=== PATIENT | female | born 1995 | race African-American/Black ===

== ENCOUNTER 2019-04-30 13:22 | Emergency (ER) | payer OTHER ==
[2019-04-30 13:34] VITALS: BP 120/79; PULSE 91; TEMP 98.6; BMI 33.5
--- NOTE | 2019-04-30 14:17 | PDOC ---
History of Present Illness - General Chief Complaint: Revisit, Lab Variance Stated Complaint: SENT BY PCP Time Seen by Provider: 04/30/19 14:16 Past History - Past Medical History Allergies/Adverse Reactions: Allergies Allergy/AdvReac Type Severity Reaction Status Date / Time No Known Allergies Allergy Unverified 04/30/19 13:34 Home Medications: Ambulatory Orders NK [No Known Home Medication] 10/06/13 COPD: No - Reproductive History (#): 5 Para: 0 Therapeutic (s) & number: Yes (4) Spontaneous : 0 - Suicide/Smoking/Psychosocial Hx Smoking History: Current every day smoker Number of Cigarettes Smoked Daily: 3 Information on smoking cessation initiated: No Hx Alcohol Use: No Substance Use Type: None *Physical Exam - Vital Signs Last Vital Signs Temp Pulse Resp BP Pulse Ox 98.6 F 91 H 18 120/79 99 04/30/19 13:31 04/30/19 13:31 04/30/19 13:31 04/30/19 13:31 04/30/19 13:31 *DC/Admit/Observation/Transfer - Referrals Referrals: Alise Mccabe DO [Primary Care Provider] - - Patient Instructions - Post Discharge Activity
--- NOTE | 2019-04-30 15:07 | PDOC ---
Documentation entered by Florence Madrid SCRIBE, acting as scribe for Lissette Souza DO. Lissette Souza DO: This documentation has been prepared by the Julius chandler Adrianna, SCRIBE, under my direction and personally reviewed by me in its entirety. I confirm that the documentation accurately reflects all work, treatment, procedures, and medical decision making performed by me. Attending Attestation - Resident Resident Name: Elo Gamble - ED Attending Attestation I have performed the following: I have examined & evaluated the patient, The case was reviewed & discussed with the resident, I agree w/resident's findings & plan, Exceptions are as noted - HPI HPI: The patient is a 23 year old female (A4), with no significant PMH, who presents to the ED for evaluation of vaginal bleeding for 2 weeks. Patient notes her LMP was over a month ago, but she continued to bleed following the completion of her period (typically last for 5 days every month). Patient notes scant blood only when wiping. [facility] issue, and was told she was . Patient has a transvaginal US today, and was told the could not be visualized. She was advised to come to the ED for further evaluation. Denies passing clots. Allergies: NKA, NKDA Surgical History: None reported Social History: Daily marijuana use. Current everyday smoker (3 cigarettes per day). Denies EtOH or illicit drug use. PCP: Dr. Mccabe - Physicial Exam PE: Constitutional: Awake, alert, oriented. No acute distress. Cardiovascular: Regular rate. Regular rhythm. S1, S2 regular. Distal pulses are 2+ and symmetric. Pulmonary/Chest: No evidence of respiratory distress. Clear to auscultation bilaterally No wheezing, rales or rhonchi. Abdominal: Soft and nondistended. There is no tenderness. No rebound, guarding or rigidity. No organomegaly. No palpable masses. Good bowel sounds. Musculoskeletal: No edema. No cyanosis. No clubbing. Full range of motion in all extremities. Nocalf tenderness. Radial/pedal pulses are intact and 2+ bilaterally Neurological: Cranial nerves II-XII are grossly intact. No focal deficits. Psychiatric: Good eye contact. Normal interaction, affect and behavior. - Medical Decision Making 04/30/19 15:05 I, Dr. Lissette Souza, DO, attest that this document has been prepared under my direction and personally reviewed by me in its entirety. I further attest, that it accurately reflects all work, treatment, procedures and medical decision -making performed by me. a/p: 23yo female with vaginal spotting since 04/15/19, fdlmp was 03/15 -[facility] 3900 on thursday -still with spotting and slight cramping -per pt, [facility] and [facility] tvus (per patient unable to visualize fetus) sent to the ED for further eval -denies passing clots -denies wearing a pad -pt with 4 d&c in the past -will send labs, beta hcg, type and screen, tvus 04/30/19 17:04 pt is O+ blood type beta 6000 04/30/19 17:04 pt to ultrasound
[2019-04-30 15:33] LABS: BASO % 0.5 % (0-2.0); EOS % 0.2 % (0-4.5); HEMATOCRIT 38.8 % (32.4-45.2); HEMOGLOBIN 13.1 GM/dL (10.7-15.3); LYMPH % 33.8 % (8-40); MCHC 33.7 g/dl (32.0-36.0); MEAN CELL VOLUME 88.9 fl (80-96); MEAN PLT VOLUME 10.2 fl (7.5-11.1); MONO % 4.3 % (3.8-10.2); NEUT % 61.2 % (42.8-82.8); PLATELET COUNT 176 K/MM3 (134-434); RBC 4.37 M/mm3 (3.60-5.2); RDW 15.1 % (11.6-15.6); WHITE BLOOD COUNT 5.6 K/mm3 (4.0-10.0)
--- NOTE | 2019-04-30 15:55 | PDOC ---
History of Present Illness - General Chief Complaint: Revisit, Lab Variance Stated Complaint: SENT BY PCP Time Seen by Provider: 04/30/19 14:16 - History of Present Illness Initial Comments: 04/30/19 15:33 HPI: 23 y/o F with hx of 4 elective abortions via D&Cs presenting from [facility] after elevated bHCG and negative IUP on US. Patient states that she has had vaginal bleeding for the past 10days after her period. LMP was 04/15/19. Her period is usually normal and regular with 5 days of flow, however, this time she has continued spotting when wiping after using the bathroom, which is abnormal for her. She denies any clots. She also reports intermittent lower abdominal cramping, but denies severe pain. She also reports NBNB emesis over the past 2 days; currently without nausea. Denies vaginal discharge. Denies fever, chills, chest pain, SOB, syncope, dysuria. PMHx: as noted above ROS: as noted SHx: Smokes 3 cigs/day; denies alcohol; smokes MJ daily; currently sexually active with 1 male partner and does not use any contraception Allergies: NKDA 04/30/19 16:07 Past History - Past Medical History Allergies/Adverse Reactions: Allergies Allergy/AdvReac Type Severity Reaction Status Date / Time No Known Allergies Allergy Unverified 04/30/19 13:34 Home Medications: Ambulatory Orders NK [No Known Home Medication] 10/06/13 COPD: No - Reproductive History (#): 5 Para: 0 Therapeutic (s) & number: Yes (4) Spontaneous : 0 - Suicide/Smoking/Psychosocial Hx Smoking History: Current every day smoker Number of Cigarettes Smoked Daily: 3 Information on smoking cessation initiated: No Hx Alcohol Use: No Substance Use Type: None Review of Systems - Review of Systems Comments:: 04/30/19 16:07 GENERAL/CONSTITUTIONAL: No fever or chills. No weakness. HEAD, EYES, EARS, NOSE AND THROAT: No change in vision. No ear pain or discharge. No sore throat. CARDIOVASCULAR: No chest pain or shortness of breath RESPIRATORY: No cough, wheezing, or hemoptysis. GASTROINTESTINAL: +nausea, vomiting; no diarrhea or constipation. GENITOURINARY: No dysuria, frequency, or change in urination. MUSCULOSKELETAL: No joint or muscle swelling or pain. No neck or back pain. SKIN: No rash NEUROLOGIC: No headache, vertigo, loss of consciousness, or change in strength/ sensation. ENDOCRINE: No increased thirst. No abnormal weight change HEMATOLOGIC/LYMPHATIC: No anemia, easy bleeding, or history of blood clots. ALLERGIC/IMMUNOLOGIC: No hives or skin allergy. *Physical Exam - Vital Signs Last Vital Signs Temp Pulse Resp BP Pulse Ox 98.6 F 91 H 18 120/79 99 04/30/19 13:31 04/30/19 13:31 04/30/19 13:31 04/30/19 13:31 04/30/19 13:31 - Physical Exam Comments: 04/30/19 16:09 GENERAL: Awake, alert, and fully oriented, no acute distress HEAD: No signs of trauma, normocephalic, atraumatic EYES: EOMI, sclera anicteric, conjunctiva clear ENT: Auricles normal inspection, hearing grossly normal, nares patent, oropharynx clear without exudates. Moist mucosa NECK: Normal ROM, no lymphadenopathy LUNGS: No increased work of breathing, symmetrical chest rise, clear to auscultation bilaterally, no wheezes, crackles or rhonchi HEART: Regular rate and rhythm, normal S1 and S2, no murmurs, peripheral pulses 2+ and equal bilaterally. ABDOMEN: Soft, nontender, nondistended, normoactive bowel sounds. No guarding, no rebound. No masses GENITOURINARY: Nml appearing external genitalia, with absent lesions. Vaginal vault without blood, or discharge. Cervical os closed. Neg CMT on BM. Neg adenexal ttp, or mass palpated. EXTREMITIES: Normal inspection, Normal range of motion, no edema. No clubbing or cyanosis. NEUROLOGICAL: Cranial nerves II through XII grossly intact. Normal speech, normal gait, no focal sensorimotor deficits SKIN: Warm, Dry, normal turgor, no rashes or lesions noted ED Treatment Course - LABORATORY CBC & Chemistry Diagram: 04/30/19 15:15 04/30/19 15:15 Medical Decision Making - Medical Decision Making 04/30/19 16:10 23 y/o F with hx of 4 elective abortions via D&Cs [facility] after elevated bHCG and negative IUP on US, notes 10 days of vaginal bleeding/spotting after period. Vitals wnl. PE unremarkable with closed os, no vaginal discharge, no CMT. Will assess for etopic vs molar vs PID vs normal -quantitative hcg, cbc, cmp, t&s, ua, ucx -transvaginal US 04/30/19 19:15 pending transvaginal US; Dr Renee will continue to follow patient *DC/Admit/Observation/Transfer Diagnosis at time of Disposition: Vaginal bleeding - Referrals Referrals: Alise Mccabe DO [Primary Care Provider] - - Patient Instructions - Post Discharge Activity
[2019-04-30 16:03] LABS: ALBUMIN 3.6 g/dl (3.4-5.0); BILIRUBIN,TOTAL 0.2 mg/dL (0.2-1); BLOOD UREA NITROGEN 8.9 mg/dL (7-18); CALCIUM 8.6 mg/dL (8.5-10.1); CREATININE 0.7 mg/dL (0.55-1.3); POTASSIUM 4.1 mmol/L (3.5-5.1); TOT PROT 6.9 g/dl (6.4-8.2)
[2019-04-30 16:51] LABS: EPI CELLS 10.2 /HPF (0-5/HPF); HYALINE CASTS 39 /lpf (0-8); URINE APPEARANCE CLOUDY; URINE BILIRUBIN NEGATIVE (NEGATIVE); URINE COLOR YELLOW; URINE GLUCOSE (UA) NEGATIVE (NEGATIVE); URINE KETONE TRACE (NEGATIVE); URINE LEUK ESTERASE NEGATIVE (NEGATIVE); URINE NITRITE NEGATIVE (NEGATIVE); URINE PROTEIN TRACE (NEGATIVE); URINE RBC 2 /hpf (0-4); URINE WBC 2 /hpf (0-5)
[2019-04-30 16:58] LABS: URINE BACTERIA 16.1 /hpf (NEGATIVE)
--- NOTE | 2019-04-30 19:31 | PDOC ---
*Physical Exam - Vital Signs Last Vital Signs Temp Pulse Resp BP Pulse Ox 98.6 F 91 H 18 120/79 99 04/30/19 13:31 04/30/19 13:31 04/30/19 13:31 04/30/19 13:31 04/30/19 13:31 <Irma Renee - Last Filed: 04/30/19 20:03> - Vital Signs Last Vital Signs Temp Pulse Resp BP Pulse Ox 98.6 F 91 H 18 120/79 99 04/30/19 13:31 04/30/19 13:31 04/30/19 13:31 04/30/19 13:31 04/30/19 13:31 <Long Duran - Last Filed: 04/30/19 21:01> ED Treatment Course - LABORATORY CBC & Chemistry Diagram: 04/30/19 15:15 04/30/19 15:15 - ADDITIONAL ORDERS Additional order review: Laboratory Results 04/30/19 04/30/19 04/30/19 16:17 15:15 15:15 Sodium Potassium Chloride Carbon Dioxide Anion Gap BUN Creatinine Est GFR (CKD-EPI)AfAm Est GFR (CKD-EPI)NonAf Random Glucose Calcium Total Bilirubin AST ALT Alkaline Phosphatase Total Protein Albumin Beta HCG, Quant 6712.2 Urine Color Yellow Urine Appearance Cloudy Urine pH 8.0 Ur Specific Calvert 1.029 Urine Protein Trace Urine Glucose (UA) Negative Urine Ketones Trace H Urine Blood 1+ H Urine Nitrite Negative Urine Bilirubin Negative Urine Urobilinogen 1.0 Ur Leukocyte Esterase Negative Urine WBC (Auto) 2 Urine RBC (Auto) 2 Urine Casts (Auto) 39 U Epithel Cells (Auto) 10.2 Urine Bacteria (Auto) 16.1 Blood Type O POSITIVE Antibody Screen Negative 04/30/19 15:15 Sodium 137 Potassium 4.1 Chloride 105 Carbon Dioxide 25 Anion Gap 7 L BUN 8.9 Creatinine 0.7 Est GFR (CKD-EPI)AfAm 139.57 Est GFR (CKD-EPI)NonAf 120.42 Random Glucose 88 Calcium 8.6 Total Bilirubin 0.2 AST 17 ALT 15 Alkaline Phosphatase 71 Total Protein 6.9 Albumin 3.6 Beta HCG, Quant Urine Color Urine Appearance Urine pH Ur Specific Calvert Urine Protein Urine Glucose (UA) Urine Ketones Urine Blood Urine Nitrite Urine Bilirubin Urine Urobilinogen Ur Leukocyte Esterase Urine WBC (Auto) Urine RBC (Auto) Urine Casts (Auto) U Epithel Cells (Auto) Urine Bacteria (Auto) Blood Type Antibody Screen 04/30/19 15:15 RBC 4.37 MCV 88.9 MCHC 33.7 RDW 15.1 MPV 10.2 Neutrophils % 61.2 Lymphocytes % 33.8 Monocytes % 4.3 Eosinophils % 0.2 Basophils % 0.5 <Irma Renee - Last Filed: 04/30/19 20:03> - LABORATORY CBC & Chemistry Diagram: 04/30/19 15:15 04/30/19 15:15 - ADDITIONAL ORDERS Additional order review: Laboratory Results 04/30/19 04/30/19 04/30/19 16:17 15:15 15:15 Sodium Potassium Chloride Carbon Dioxide Anion Gap BUN Creatinine Est GFR (CKD-EPI)AfAm Est GFR (CKD-EPI)NonAf Random Glucose Calcium Total Bilirubin AST ALT Alkaline Phosphatase Total Protein Albumin Beta HCG, Quant 6712.2 Urine Color Yellow Urine Appearance Cloudy Urine pH 8.0 Ur Specific Calvert 1.029 Urine Protein Trace Urine Glucose (UA) Negative Urine Ketones Trace H Urine Blood 1+ H Urine Nitrite Negative Urine Bilirubin Negative Urine Urobilinogen 1.0 Ur Leukocyte Esterase Negative Urine WBC (Auto) 2 Urine RBC (Auto) 2 Urine Casts (Auto) 39 U Epithel Cells (Auto) 10.2 Urine Bacteria (Auto) 16.1 Blood Type O POSITIVE Antibody Screen Negative 04/30/19 15:15 Sodium 137 Potassium 4.1 Chloride 105 Carbon Dioxide 25 Anion Gap 7 L BUN 8.9 Creatinine 0.7 Est GFR (CKD-EPI)AfAm 139.57 Est GFR (CKD-EPI)NonAf 120.42 Random Glucose 88 Calcium 8.6 Total Bilirubin 0.2 AST 17 ALT 15 Alkaline Phosphatase 71 Total Protein 6.9 Albumin 3.6 Beta HCG, Quant Urine Color Urine Appearance Urine pH Ur Specific Calvert Urine Protein Urine Glucose (UA) Urine Ketones Urine Blood Urine Nitrite Urine Bilirubin Urine Urobilinogen Ur Leukocyte Esterase Urine WBC (Auto) Urine RBC (Auto) Urine Casts (Auto) U Epithel Cells (Auto) Urine Bacteria (Auto) Blood Type Antibody Screen 04/30/19 15:15 RBC 4.37 MCV 88.9 MCHC 33.7 RDW 15.1 MPV 10.2 Neutrophils % 61.2 Lymphocytes % 33.8 Monocytes % 4.3 Eosinophils % 0.2 Basophils % 0.5 <Long Duran - Last Filed: 04/30/19 21:01> Medical Decision Making - Medical Decision Making pt signed out pending repeat sono and betahcg with beta 6700, TVUS with no IUP seen. PUL vs ectopic. pt however is eager to leave and unwilling to stay to discuss results and discuss with internal sales wedding consultant and personal one. told to f/u in 2 days for repeat beta hcg/imaging, as there is concern for ectopic . no pain currently, VS normotensive and unremarkable. Discussion at the bedside with patient and family. Pt has capacity to make medical decisions. Discussed indications for treatment and admission, management plan, risks and benefits. There is no evidence of psychosis, altered mental status or intoxication. Pt understands the nature of condition and treatment plan, including potential risks but not limited to: cardiac arrest, severe infection, ectopic , rupture, peritonitis, perforation, dehydration, bleeding, respiratory failure, delay in diagnosis and management, loss of current lifestyle, loss of functional status, multiorgan failure, coma, severe disability and . Pt will be treated with tylenol PRN pain control close follow up with primary care doctor with reevaluation. Return precautions advised, call 911 immediately if severe life threatening symptoms or concerns.. Pt has verbalized understanding of information provided, questions answered. 04/30/19 20:03 <Irma Renee - Last Filed: 04/30/19 20:03> - Medical Decision Making 04/30/19 19:27 23 y/o hemodynamically stable F with hx 4x D&C p/w 10 days of vaginal bleeding after LMP on 04/15/19 - [facility] after hcg nearly doubled from 3500 2 days ago to 6700 today. Concern for possible ectopic given mild lower abdominal cramping. Plan: Result from TVUS If intrauterine visualized, discharge home. If ectopic noted, discuss with drupal programmer. Dispo: Pending TVUS read --- TVUS - no intrauterine noted. No ectopic noted. As is of unknown anatomic location, plan for drupal programmer consult. --- Results discussed with Ms. Moss. Patient reports that she would like to leave before the drupal programmer consult. Discussed risks of leaving before full workup, she is of sound mind, fully alert and oriented, and not intoxicated. Plan for AMA. Discussed careful return precautions as noted above and in AMA instructions,, including returning with any signs of peritonitis, worsening pain , fevers, chills, confusion, as well as importance for return in 2 days to re- assess hcg. <Long Duran - Last Filed: 04/30/19 21:01> *DC/Admit/Observation/Transfer <Irma Renee - Last Filed: 04/30/19 20:03> - Discharge Dispostion Decision to Admit order: No <Long Duran - Last Filed: 04/30/19 21:01> Diagnosis at time of Disposition: Vaginal bleeding, of unknown anatomic location - Discharge Dispostion Disposition: AGAINST MEDICAL ADVICE Condition at time of disposition: Guarded - Referrals Referrals: Alise Mccabe DO [Primary Care Provider] - - Patient Instructions Printed Discharge Instructions: DI for Ectopic , DI for Vaginal Bleeding During Additional Instructions: Discussion at the bedside with patient, you have capacity to make medical decisions. Discussed indications for treatment and admission, management plan, risks and benefits. There is no evidence of psychosis, altered mental status or intoxication. Pt understands the nature of condition and treatment plan, including potential risks but not limited to: severe infection, ectopic , rupture, peritonitis, perforation, dehydration, bleeding, respiratory failure, delay in diagnosis and management, loss of current lifestyle, loss of functional status, multiorgan failure, coma, severe disability and . Pt will be treated with tylenol PRN pain control close follow up with primary care doctor and SUPPLIER QUALITY SPECIALIST with reevaluation, you should get repeat beta hcg in 48 hours to check and trend with imaging as necessary as we were unable to see a currently with appropriate levels and concern for ectopic . Return precautions advised, call 911 immediately if severe life threatening symptoms or concerns.. - Post Discharge Activity
--- NOTE | 2019-05-04 16:11 | CONSULT ---
Consult Consult Specialty:: SPACE [employer]UD[employer]ACULT[employer] MEMBER Reason for Consultation:: Suspected ectopic - History of Present Illness Chief Complaint: RLQ pain History of Present Illness: Patient reports following at [facility] for . She was evaluated and SJ on and today for pain and vaginal bleeding. Documentation reviewed. SHe reports mild VB and 5/10 pain. 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: No: Alzheimer's, CVA, Dementia, Migraine, Multiple Sclerosis, Peripheral Neuropathy, Parkinson's, Seizure, Syncope, TIA, Vertigo, Other Cardio/Vascular: No: AFIB, Aneurysm, Aortic Insufficiency, Aortic Stenosis, CAD , CHF, Deep Vein Thrombosis, HTN, Hyperlipdemia, RI, Mitral Insufficiency, Mitral Stenosis, Murmur, Pulmonary Hypertension, Other Pulmonary: No: Asthma, Bronchitis, Cancer, COPD, O2 Dependent, Pneumonia, Previously Intubated, Pulmonary Embolus, Pulmonary Fibrosis, Sleep Apnea, Other Gastrointestinal: No: Ascites, Cancer, Constipation, Crohn's Disease, Diverticulitis, Diverticulosis, Esophageal Varices, Gastritis, GERD, GI Bleed, Hemorrhoids, Hiatal Hernia, Inflamatory Bowel Disease, Irritable Bowel Disease, Pancreatitis, Peptic Ulcer Disease, Ulcerative Colitis, Other Hepatobiliary: No: Cirrhosis, Cholelithiasis, Cholecystitis, Choledocholithiasis , Hepatitis A, Hepatitis B, Hepatitis C, Other Renal/: No: Renal Failure, Renal Inusuff, BPH, Cancer, Hematuria, Hemodialysis , Neurogenic Bladder, Renal Calculi, UTI, Other Reproductive: No: Ectopic , Endometriosis, Fibroids, PID, Polycystic Ovary Syndrome, Postmenopausal, Other ...LMP: 04/15/19 ...: Yes Heme/Onc: No: Anemia, B12 Deficiency, Bleeding Disorder, Cancer, Current Chemotherapy, Current Radiation Therapy, Hemochromatosis, Hypercoaguable State, Myeloproliferative Synd, Sickle Cell Disease, Sickle Cell Trait, Thrombocytopenia, Other Infectious Disease: No: AIDS, C-Diff, Herpes Zoster, HIV, MRSA, STD's, Tuberculosis, VREF, Other Psych: No: Addictions, Anxiety, Bipolar, Depression, Panic, Psychosis, Schizophrenia, Other Musculoskeletal: No: Bursitis, Chronic low back pain, Hemiparesis, Hemiplegia, Osteoarthritis, Paraplegia, Other Rheumatology: No: Fibromyalgia, Gout, Lupus, Rheumatoid Arthritis, Sarcoidosis, Vasculitis, Other ENT: No: Allergic Rhinitis, Sinusitis, Other Endocrine: No: Eddy's Disease, [place]'s Disease, Diabetes Insipidus, Diabetes Mellitus, Hyperparathyroidism, Hyperthyroidism, Hypothyroidism, Osteopenia, SIADH, Other Dermatology: No: Basal Cell, Cellulitis, Eczema, Melanoma, Psoriasis, Squamous Cell, Other - Past Surgical History Additional Surgical History: D&C x 4 - Alcohol/Substance Use Hx Alcohol Use: No History of Substance Use: reports: Marijuana - Smoking History Smoking history: Current every day smoker Have you smoked in the past 12 months: Yes Aproximately how many cigarettes per day: 3 Home Medications - Allergies Allergies/Adverse Reactions: Allergies Allergy/AdvReac Type Severity Reaction Status Date / Time No Known Allergies Allergy Verified 05/04/19 12:04 - Home Medications Home Medications: Ambulatory Orders NK [No Known Home Medication] 10/06/13 Family Disease History - Family Disease History Family History: Unremarkable Review of Systems - Review of Systems Constitutional: reports: No Symptoms HENT: reports: No Symptoms Neck: reports: No Symptoms Cardiovascular: reports: No Symptoms Respiratory: reports: No Symptoms Gastrointestinal: reports: No Symptoms, Abdominal Pain (RLQ) Genitourinary: reports: No Symptoms, Vaginal Bleeding Breasts: reports: Other Musculoskeletal: reports: No Symptoms Integumentary: reports: No Symptoms Neurological: reports: No Symptoms Endocrine: reports: No Symptoms Hematology/Lymphatic: reports: No Symptoms Psychiatric: reports: No Symptoms Physical Exam Vital Signs: Vital Signs Temperature 98.6 F 04/30/19 13:31 Pulse Rate 91 H 04/30/19 13:31 Respiratory Rate 18 04/30/19 13:31 Blood Pressure 120/79 04/30/19 13:31 O2 Sat by Pulse Oximetry (%) 99 04/30/19 13:31 Constitutional: Yes: Calm HENT: Yes: Atraumatic Neck: Yes: Supple Cardiovascular: Yes: Regular Rate and Rhythm Respiratory: Yes: Regular Gastrointestinal: Yes: Soft, Other (mild RLQ tenderness on palpation, no guarding, no rebound) ...Rectal Exam: Yes: Deferred Extremities: Yes: WNL Edema: No Integumentary: Yes: WNL Neurological: Yes: Alert, Oriented Psychiatric: Yes: Alert, Oriented Labs: CBC, BMP 04/30/19 15:15 08/31/19 15:15 Imaging - Results Ultrasound: Report Reviewed (x 2) Assessment/Plan 23 y/o presenting for suspicion of ectopic vs MAB. Passible diagnoses discussed with patient including abnormally increasing betas and ultrasound findings. All questions answered. Clinical recommendation of medical treatment for suspected ectopic given. Unplanned and patient is in agreement with this. Side effects, complications of methotrexate explained as well as importance of follow up and warning signs. Patient discussed with ER provider -Methotrexate 115mg Im as per documented BSA of 2.28 -CBC -[facility] at [facility]19 and 05/10/19 for betas -Follow up at [facility] in 1 week -Return to ER PRN
== END 2019-04-30 20:28 | disposition left against medical advice (07) ==
LOC: JER 13:22
DX: O26.891 Other specified pregnancy related conditions, first trimester (principal); O20.8 Other hemorrhage in early pregnancy; Z3A.00 Weeks of gestation of pregnancy not specified
CPT/HCPCS: 36415; 76817-TC; 80053; 81003; 84702; 85025; 86850; 86900; 86901; 99283-25

== ENCOUNTER 2019-05-04 11:48 | Emergency (ER) | payer OTHER ==
[2019-05-04 12:04] VITALS: BMI 33.5
[2019-05-04] MEDS ORDERED: KETOROLAC TROMETHAMINE 60 MG/2 ML VIAL IM ONE (12:54)
--- NOTE | 2019-05-04 13:11 | PDOC ---
History of Present Illness - General Chief Complaint: Vaginal Bleeding Stated Complaint: ATROPHIC Time Seen by Provider: 05/04/19 12:46 History Source: Patient - History of Present Illness Timing/Duration: reports: constant Quality: reports: moderate Past History - Past Medical History Allergies/Adverse Reactions: Allergies Allergy/AdvReac Type Severity Reaction Status Date / Time No Known Allergies Allergy Verified 05/04/19 12:04 Home Medications: Ambulatory Orders NK [No Known Home Medication] 10/06/13 COPD: No - Reproductive History (#): 5 Para: 0 Therapeutic (s) & number: Yes (4) Spontaneous : 0 - Suicide/Smoking/Psychosocial Hx Smoking History: Former smoker Have you smoked in the past 12 months: No Number of Cigarettes Smoked Daily: 3 If you are a former smoker, when did you quit?: 2 DAYS AGO Information on smoking cessation initiated: No Hx Alcohol Use: No Drug/Substance Use Hx: No Substance Use Type: None Review of Systems - Review of Systems Constitutional: No: Chills, Fever ABD/GI: Yes: Abdominal cramping. No: Nausea, Vomiting : No: Dysuria *Physical Exam - Vital Signs Last Vital Signs Temp Pulse Resp BP Pulse Ox 98.5 F 65 16 116/65 100 05/04/19 11:57 05/04/19 11:57 05/04/19 11:57 05/04/19 11:57 05/04/19 11:57 - Physical Exam General Appearance: Yes: Appropriately Dressed, Mild Distress HEENT: positive: Normal Voice Neck: positive: Supple Respiratory/Chest: negative: Respiratory Distress Gastrointestinal/Abdominal: positive: Tender, Soft Musculoskeletal: negative: CVA Tenderness Integumentary: positive: Dry, Warm Neurologic: positive: Fully Oriented, Alert, Normal Mood/Affect ED Treatment Course - RADIOLOGY Radiology Studies Ordered: Category Date Time Status TRANSVAGINAL US PREG [US] Stat Ultrasound 05/04/19 12:50 Ordered Medical Decision Making - Medical Decision Making 05/04/19 13:08 23 yo F, , s/p 4 elective ABs, presented to ED 4 days ago with vaginal bleeding, abdominal pain in the setting of first trimester . Beta found to be in in the 6000. UW with fibroid versus cornual ectopic on ultrasound per notes. Patient left AMA prior to [facility] being consulted. States she has not seen [facility] since discharge and now comes in with continued lower abd pain w/ vaginal spotting. No clots, dysuria, nausea, vomiting, fever or chills. Of note, labs on visit 4 days ago were normal. 0+ see exam Spon AB, r/o ectopic given hx Stable w/ minimal ttp to lower abd diffusely -US pending 05/04/19 14:41 US read as large R fibroids and smaller fundal fibroid, unable to visualize R ovary but no obvious evidence of ectopic and no IUP. Beta increased to >10K today. Spoke to Dr Apple who states he will be down to evaluate pt in 1/2 hr. Pt currently stable 05/04/19 15:46 Dr Apple at bedside, wants a dose of methotrexate here and to check CBC. Wants pt to return to ED on 05/07 and 05/10 for rpt beta and to see him in clinic next week. Pt remains stable and well khoa w/ pain presently controlled. Will sign on to UZIEL Maki at 4pm pending cbc, methotrexate and discharge *DC/Admit/Observation/Transfer Diagnosis at time of Disposition: Vaginal bleeding, of unknown anatomic location - Referrals Referrals: Alise Mccabe DO [Primary Care Provider] - - Patient Instructions Printed Discharge Instructions: DI for Ectopic Additional Instructions: You were given dose of methotrexate here for possible ectopic Please return to ED on 05/07 and for repeat beta Return to ED immediately for worsening abdominal pain, nausea, vomiting or fever. You were evaluated by Dr. Mccray of [facility] who wants to see you in clinic next week - Post Discharge Activity
[2019-05-04] MEDS ORDERED: KETOROLAC TROMETHAMINE 60 MG/2 ML VIAL ONE (13:20)
[2019-05-04] MEDS ORDERED: METHOTREXATE SODIUM/PF 25 MG/ML VIAL IM ONE ×2 (15:45→16:03)
--- NOTE | 2019-05-04 16:51 | PDOC ---
*Physical Exam - Vital Signs Last Vital Signs Temp Pulse Resp BP Pulse Ox 98.5 F 65 16 116/65 100 05/04/19 11:57 05/04/19 11:57 05/04/19 11:57 05/04/19 11:57 05/04/19 11:57 - Physical Exam General Appearance: Yes: Nourished, Appropriately Dressed. No: Apparent Distress Gastrointestinal/Abdominal: positive: Normal Bowel Sounds, Flat, Soft, Other ( cramping to the R adenexa) ED Treatment Course - LABORATORY CBC & Chemistry Diagram: 05/04/19 17:09 - ADDITIONAL ORDERS Additional order review: Laboratory Results 05/04/19 13:25 Beta HCG, Quant 68621.6 - Medications Given in the ED: ED Medications Discontinued Medications Generic Name Dose Route Start Last Admin Trade Name Yesi PRN Reason Stop Dose Admin Ketorolac Tromethamine 60 mg 05/04/19 12:54 05/04/19 13:34 Toradol Injection - IM 05/04/19 12:55 60 mg ONCE ONE Administration Medical Decision Making - Medical Decision Making 05/04/19 18:19 Pt received her methotrexate. No reactions. H&H stable O+ Pt was evaluated by MARINATOR Strict return precautions given to the patient. Understands she needs to f/u in two days and then 5 days; also has f/u w/ OB scheduled DC home I discussed the physical exam findings, ancillary test results and final diagnoses with the patient. I answered all of the patient's questions. The patient was satisfied with the care received and felt comfortable with the discharge plan and treatment plan. The Patient agrees to follow up with the primary care physician/specialist within 24-72 hours. Return precautions were given. *DC/Admit/Observation/Transfer Diagnosis at time of Disposition: Vaginal bleeding, of unknown anatomic location - Referrals Referrals: Alise Mccabe DO [Primary Care Provider] - Tayo Mccray MD [Staff Physician] - - Patient Instructions Printed Discharge Instructions: DI for Ectopic Additional Instructions: You were given dose of methotrexate here for possible ectopic Please return to ED on 05/07 and for repeat beta (blood work) Return to ED immediately for worsening abdominal pain, nausea, vomiting or fever. You were evaluated by Dr. Mccray of [employer] who wants to see you in clinic next week - Post Discharge Activity
[2019-05-04 17:42] LABS: BASO % 0.2 % (0-2.0); EOS % 0.8 % (0-4.5); HEMATOCRIT 38.8 % (32.4-45.2); HEMOGLOBIN 12.8 GM/dL (10.7-15.3); LYMPH % 47.4 % (8-40); MCH 29.3 pg (25.7-33.7); MCHC 32.9 g/dl (32.0-36.0); MEAN CELL VOLUME 89.2 fl (80-96); MEAN PLT VOLUME 10.1 fl (7.5-11.1); MONO % 6.9 % (3.8-10.2); NEUT % 44.7 % (42.8-82.8); PLATELET COUNT 148 K/MM3 (134-434); RBC 4.35 M/mm3 (3.60-5.2); RDW 14.9 % (11.6-15.6); WHITE BLOOD COUNT 4.6 K/mm3 (4.0-10.0)
[2019-05-04 18:44] VITALS: BP 116/68; PULSE 78; TEMP 98.6
== END 2019-05-04 18:41 | disposition home or self-care (01) ==
LOC: JER 11:48
DX: O26.891 Other specified pregnancy related conditions, first trimester (principal); O28.3 Abnormal ultrasonic finding on antenatal screening of mother; Z3A.00 Weeks of gestation of pregnancy not specified
CPT/HCPCS: 36415; 76817-TC; 84702; 85025; 99283-25; J9260

== ENCOUNTER 2019-05-07 11:00 | Emergency (ER) | payer OTHER ==
[2019-05-07 11:05] VITALS: BP 111/66; PULSE 77; TEMP 99.6; BMI 33.5
--- NOTE | 2019-05-07 11:58 | PDOC ---
History of Present Illness - General Chief Complaint: Revisit, Lab Variance Stated Complaint: FOLLOW UP Time Seen by Provider: 05/07/19 11:11 History Source: Patient Exam Limitations: No Limitations Past History - Past Medical History Allergies/Adverse Reactions: Allergies Allergy/AdvReac Type Severity Reaction Status Date / Time No Known Allergies Allergy Verified 05/07/19 11:05 Home Medications: Ambulatory Orders NK [No Known Home Medication] 10/06/13 COPD: No - Reproductive History (#): 5 Para: 0 Therapeutic (s) & number: Yes (4) Spontaneous : 0 - Suicide/Smoking/Psychosocial Hx Smoking History: Never smoked Have you smoked in the past 12 months: No Number of Cigarettes Smoked Daily: 3 If you are a former smoker, when did you quit?: 2 DAYS AGO Hx Alcohol Use: No Drug/Substance Use Hx: No Substance Use Type: None *Physical Exam - Vital Signs Last Vital Signs Temp Pulse Resp BP Pulse Ox 99.6 F 77 18 111/66 99 05/07/19 11:03 05/07/19 11:03 05/07/19 11:03 05/07/19 11:03 05/07/19 11:03 - Physical Exam General Appearance: No: Apparent Distress Respiratory/Chest: positive: Lungs Clear, Normal Breath Sounds. negative: Respiratory Distress Cardiovascular: positive: Regular Rhythm, Regular Rate, S1, S2. negative: Murmur Gastrointestinal/Abdominal: positive: Normal Bowel Sounds, Soft. negative: Tender, Distended, Guarding, Rebound Neurologic: positive: Alert, Normal Mood/Affect Medical Decision Making - Medical Decision Making 23 y/o F (hx of 4 abortions, no miscarriages) presents for f/u after receiving methotrexate 3 days ago for possible ectopic . Patient was seen by GEAR GENERATOR SET UP OPERATOR, Dr. Mccray, and was advised to return to ED today for repeat Bhcg. Patient with mild lower abdominal pain and slight vaginal spotting ( states she only notices it upon wiping). Also with occasional NBNB emesis over the past week. Denies fever, sob, cp, urinary complaints. [facility] Apr 15 Plan: Check bhcg 05/07/19 11:57 Laboratory Results - last 24 hr 05/07/19 11:43 Beta HCG, Quant 04753.4 Bhcg going up Spoke to Dr. Maturana who states it is normal for Bhcg to increase on day 4 States patient has to return on 05/10 for repeat Bhcg (which is when Bhcg should decrease) Wanted to speak to patient regarding results but patient had walked out Patient was called and informed of results; she knows to come back the 05/07/19 13:32 *DC/Admit/Observation/Transfer Diagnosis at time of Disposition: Laboratory test - Discharge Dispostion Disposition: HOME Condition at time of disposition: Stable Decision to Admit order: No - Referrals Referrals: Alise Mccabe DO [Primary Care Provider] - - Patient Instructions - Post Discharge Activity
== END 2019-05-07 13:41 | disposition home or self-care (01) ==
LOC: JERFT 11:00
DX: O26.891 Other specified pregnancy related conditions, first trimester (principal); O20.8 Other hemorrhage in early pregnancy; O28.3 Abnormal ultrasonic finding on antenatal screening of mother; Z3A.00 Weeks of gestation of pregnancy not specified
CPT/HCPCS: 36415; 84702; 99281-25

== ENCOUNTER 2019-05-10 17:59 | Emergency (ER) | payer OTHER | END 2019-05-10 22:22 | disposition left against medical advice (07) | LOC: JER 17:59 ==

== ENCOUNTER 2019-05-11 01:37 | Inpatient (IN) | payer OTHER ==
--- NOTE | 2019-05-11 01:51 | PDOC ---
History of Present Illness - General Stated Complaint: ABD PAIN Time Seen by Provider: 05/11/19 01:50 - History of Present Illness Initial Comments: 05/11/19 02:06 23 year old presents , 4 prior abortions, recent history of presumed ectopic with methotrexate dosed on 05/04/19. She was seen earlier in the day for beta and repeat tvus, but she eloped before results were given. She now presents with diffuse abdominal pain and took 1/2 percocet 10min prior to arrival. ROS GENERAL/CONSTITUTIONAL: No fever or chills. No weakness. HEAD, EYES, EARS, NOSE AND THROAT: No change in vision. No ear pain or discharge. No sore throat. CARDIOVASCULAR: No chest pain or shortness of breath RESPIRATORY: No cough, wheezing, or hemoptysis. GASTROINTESTINAL: No nausea, vomiting, diarrhea or constipation. GENITOURINARY: No dysuria, frequency, or change in urination. MUSCULOSKELETAL: No joint or muscle swelling or pain. No neck pain PE GENERAL: Awake, alert, and fully oriented, in no acute distress HEAD: No signs of trauma, normocephalic, atraumatic EYES: EOMI, sclera anicteric, conjunctiva clear ENT: oropharynx clear without exudates. Moist mucosa NECK: Normal ROM, supple LUNGS: No distress, speaks full sentences, clear to auscultation bilaterally HEART: Regular rate and rhythm, normal S1 and S2, no murmurs, rubs or gallops, peripheral pulses normal and equal bilaterally. ABDOMEN: Soft, nontender No guarding, no rebound. No masses EXTREMITIES : Normal inspection, Normal range of motion, no edema. No clubbing or cyanosis. NEUROLOGICAL: Cranial nerves II through XII grossly intact. Normal speech, no focal sensorimotor deficits SKIN: Warm, Dry, normal turgor, no rashes or lesions noted MDM DDX including but not limited to: ruptured ectopic vs ovarian torsion W/U: - pre-op labs TX: - pain control ED Course: labs wnl, patient was seen earlier in the day w/ beta of 1200s and tvus with no viable intrauterine preg or free fluid, but unable to visualize ovaries. Case discussed with OBGYN, Dr. Avendaño who evaluated patient and feels patient will need admission and possible OR Plan for admission Sandra Moore, PGY2 Emergency Medicine Past History - Past Medical History Allergies/Adverse Reactions: Allergies Allergy/AdvReac Type Severity Reaction Status Date / Time No Known Allergies Allergy Verified 05/10/19 18:18 Home Medications: Ambulatory Orders Acetaminophen [Tylenol] 650 mg PO Q6H PRN #20 tablet 05/11/19 Ibuprofen 600 mg PO Q6H PRN #20 tablet 05/11/19 COPD: No - Reproductive History (#): 5 Para: 0 Dysfunctional Uterine Bleeding: No Ectopic : No Endometrial CA: No Polycystic Ovaries: No Therapeutic (s) & number: Yes (4) Tubal Ligation: No Spontaneous : 0 - Suicide/Smoking/Psychosocial Hx Smoking History: Never smoked Have you smoked in the past 12 months: No Number of Cigarettes Smoked Daily: 3 If you are a former smoker, when did you quit?: 2 DAYS AGO Hx Alcohol Use: No Drug/Substance Use Hx: No Substance Use Type: None ED Treatment Course - LABORATORY CBC & Chemistry Diagram: 05/11/19 13:10 05/11/19 03:08 *DC/Admit/Observation/Transfer Diagnosis at time of Disposition: Early stage of Abdominal pain Qualifiers: Abdominal location: lower abdomen, unspecified Qualified Code(s): R10.30 - Lower abdominal pain, unspecified - Discharge Dispostion Disposition: HOME Condition at time of disposition: Stable Decision to Admit order: Yes - Referrals - Patient Instructions - Post Discharge Activity
--- NOTE | 2019-05-11 01:52 | PDOC ---
Attending Attestation - Resident Resident Name: Sandra Moore - ED Attending Attestation I have performed the following: I have examined & evaluated the patient, The case was reviewed & discussed with the resident, I agree w/resident's findings & plan
[2019-05-11 01:53] VITALS: BMI 30.7
[2019-05-11] MEDS ORDERED: KETOROLAC TROMETHAMINE 15 MG/ML VIAL IVPUSH ONE (01:58)
[2019-05-11] MEDS ORDERED: KETOROLAC TROMETHAMINE 15 MG/ML VIAL IM ONE (02:00)
--- NOTE | 2019-05-11 02:03 | PDOC ---
Attending Attestation - Resident Resident Name: Sandra Moore - ED Attending Attestation I have performed the following: I have examined & evaluated the patient, The case was reviewed & discussed with the resident, I agree w/resident's findings & plan, Exceptions are as noted - HPI HPI: 05/11/19 02:00 23-year-old female who eloped earlier this evening after having a transvaginal ultrasound and beta-hCG done HPI: this pt received methotrexate for an ectopic on 05/04/19 and has returned several times for repeat bhcg and ultrasounds she came back again tonight after having some abd cramping - Physicial Exam PE: 05/11/19 02:05 wnwd 23 yo female p/w abd cramping s/p methotrexate for therapeutic AB abd no rebound,no guarding I agree with Dr Moore's physical exam 05/11/19 02:07 - Medical Decision Making 05/11/19 02:14 will give pain meds and reassess casa s/o to Dr Deshpande
[2019-05-11] MEDS ORDERED: KETOROLAC TROMETHAMINE 15 MG/ML VIAL ONE (02:06)
[2019-05-11] MEDS ORDERED: morphine CARPU-JECT 2 MG/1 ML DISP.SYRIN IVPUSH ONE ×2 (02:49→05:25)
[2019-05-11] MEDS ORDERED: MORPHINE SULFATE 2 MG/ML VIAL ONE (03:13)
[2019-05-11 03:36] LABS: BASO % 0.4 % (0-2.0); EOS % 1.2 % (0-4.5); HEMATOCRIT 34.6 % (32.4-45.2); HEMOGLOBIN 11.4 GM/dL (10.7-15.3); LYMPH % 39.8 % (8-40); MCH 29.6 pg (25.7-33.7); MEAN CELL VOLUME 89.7 fl (80-96); MEAN PLT VOLUME 10.2 fl (7.5-11.1); MONO % 5.5 % (3.8-10.2); NEUT % 53.1 % (42.8-82.8); PLATELET COUNT 153 K/MM3 (134-434); RBC 3.86 M/mm3 (3.60-5.2); RDW 14.7 % (11.6-15.6); WHITE BLOOD COUNT 4.9 K/mm3 (4.0-10.0)
[2019-05-11 03:43] LABS: ALBUMIN 3.1 g/dl (3.4-5.0); BILIRUBIN,TOTAL 0.2 mg/dL (0.2-1); BLOOD UREA NITROGEN 7.5 mg/dL (7-18); CALCIUM 8.1 mg/dL (8.5-10.1); CREATININE 0.7 mg/dL (0.55-1.3); POTASSIUM 4.1 mmol/L (3.5-5.1); TOT PROT 6.2 g/dl (6.4-8.2)
[2019-05-11] MEDS ORDERED: morphine CARPU-JECT 4 MG/1 ML DISP.SYRIN IVPUSH ONE (05:42)
[2019-05-11] MEDS ORDERED: morphine SULFATE 4 MG/ML VIAL ONE (05:43)
[2019-05-11] MEDS ORDERED: SODIUM CHLORIDE 1,000 ML IV SCH (05:45)
--- NOTE | 2019-05-11 06:52 | HP ---
Past Medical History - Primary Care Physician PCP:: Maricruz Avendaño - Admission Chief Complaint: 23 yrs , seen in ER After receiving Methotrexate on inj on 05/04/19 , presents with severe abdominal pain , not relieved by morphine , bhcg persistently high 24248.1 History of Present Illness: pt was seen initially for the same c/o abd pain & bleeding on 04/30/19 . hcg was 6712.2 miu, 04/30/19 sono report : No iug sac seen, Rt sided fundal fibroid 2.2x2.2x1.8 cm , suspect cornual fibroid versus Cornual , Large pedunculated fundal fibroid exophytic to uterus 6.5x4.7x5.1 cm m Rt adnexa obscured , Rt ovary not visualized , possible Rt sided ectopic can not be ruled out , Lt ovary 1.4x1.4x2.3 cm 05/04/19 pt returned to ER , , HCG 23346.6 sono report: ut 7.2x3,7 cm, em 4.5mm , Large right lateral myoma 5.2x4.3x3.8cm , another small ant 1.2x1cm ,Lt ovary 1.9x1.4cm No iugsac seen . No free fluid , pt received 115 mg Im Methotrexate 05/07/19 returned to ER for f/u HCG 19489.4 05/10/19 pt returned to ER with severe abd pain , unable to tolerate , after blood work up she left returned in 3 hrs , no relief from pain in spite of taking percocet & Morphine in ED . HCG : 25022.1 Sono : as per previous sono on 04/30 & 05/04 , No iup . no adnexal pathology ,ovaries not visualized, 6cm uterine myoma , no free fluid pt states she had spell of dizziness after receiving Methotrexate ,had vomiting once,but she does not feel dizzy, presently her main problem is pain scale 10/ 10 bleeding since last period on 04/15/19 light bleeding . 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 Last AB in 2013 Contraception , None since 2013. 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 SEWER: No: Alzheimer's, CVA, Dementia, Migraine, Multiple Sclerosis, Peripheral Neuropathy, Parkinson's, Seizure, Syncope, TIA, Vertigo, Other Cardiovascular: No: AFIB, Aneurysm, Aortic Insufficiency, Aortic Stenosis, CAD, CHF, Deep Vein Thrombosis, HTN, Hyperlipdemia, NM, Mitral Insufficiency, Mitral Stenosis, Murmur, Pulmonary Hypertension, Other Pulmonary: No: Asthma, Bronchitis, Cancer, COPD, O2 Dependent, Pneumonia, Previously Intubated, Pulmonary Embolus, Pulmonary Fibrosis, Sleep Apnea, Other Renal/: No: Renal Failure, Renal Inusuff, BPH, Cancer, Hematuria, Hemodialysis , Neurogenic Bladder, Renal Calculi, UTI, Other Reproductive: Yes: Fibroids (known to patient since 2014) ...: 5 ...Para: 0 ...Induced : 4 (last 2013) ...LMP: 04/15/19 Heme/Onc: No: Anemia, B12 Deficiency, Bleeding Disorder, Cancer, Current Chemotherapy, Current Radiation Therapy, Hemochromatosis, Hypercoaguable State, Myeloproliferative Synd, Sickle Cell Disease, Sickle Cell Trait, Thrombocytopenia, Other Infectious Disease: No: AIDS, C-Diff, Herpes Zoster, HIV, MRSA, STD's, Tuberculosis, VREF, Other Psych: No: Addictions, Anxiety, Bipolar, Depression, Panic, Psychosis, Schizophrenia, Other Musculoskeletal: No: Bursitis, Chronic low back pain, Hemiparesis, Hemiplegia, Osteoarthritis, Paraplegia, Other Rheumatology: No: Fibromyalgia, Gout, Lupus, Rheumatoid Arthritis, Sarcoidosis, Vasculitis, Other ENT: No: Allergic Rhinitis, Sinusitis, Other Endocrine: No: Romie's Disease, Monona's Disease, Diabetes Insipidus, Diabetes Mellitus, Hyperparathyroidism, Hyperthyroidism, Hypothyroidism, Osteopenia, SIADH, Other Dermatology: No: Basal Cell, Cellulitis, Eczema, Melanoma, Psoriasis, Squamous Cell, Other - Past Surgical History Past Surgical History: Yes: None Hx Myomectomy: No Hx Transabdominal Cerclage: No - Smoking History Smoking history: Never smoked Have you smoked in the past 12 months: No Aproximately how many cigarettes per day: 3 If you are a former smoker, when did you quit?: 2 DAYS AGO - Alcohol/Substance Use Hx Alcohol Use: No History of Substance Use: reports: Marijuana (twice or thrice a week) Home Medications - Allergies Allergies/Adverse Reactions: Allergies Allergy/AdvReac Type Severity Reaction Status Date / Time No Known Allergies Allergy Verified 05/10/19 18:18 - Home Medications Home Medications: Ambulatory Orders NK [No Known Home Medication] 10/06/13 Review of Systems - Review of Systems Constitutional: reports: Other (in severe pain , unable to walk & restless) HENT: reports: No Symptoms Neck: reports: No Symptoms Cardiovascular: reports: No Symptoms Respiratory: reports: No Symptoms Gastrointestinal: reports: No Symptoms Genitourinary: reports: Other (difficulty urinating) Breasts: reports: No Symptoms Reported Musculoskeletal: reports: No Symptoms Integumentary: reports: No Symptoms Neurological: reports: No Symptoms Endocrine: reports: No Symptoms Hematology/Lymphatic: reports: No Symptoms Psychiatric: reports: No Symptoms Pain Intensity: 10 Physical Exam-V BELT COVERER Vital Signs: Vital Signs Temperature 97.9 F 05/11/19 01:50 Pulse Rate 70 05/11/19 01:50 Respiratory Rate 18 05/11/19 01:50 Blood Pressure 104/58 L 05/11/19 01:50 O2 Sat by Pulse Oximetry (%) 98 05/11/19 01:50 in Selected Entries 05/11/19 01:50 Weight 220 lb Selected Entries 05/11/19 06:42 Temperature 98.1 F Pulse Rate [ 76 Radial] Respiratory 18 Rate Blood Pressure 118/63 [Arm] Constitutional: Yes: Anxious, Severe Distress, Other Eyes: Yes: WNL HENT: Yes: WNL Neck: Yes: WNL Cardiovascular: Yes: WNL Respiratory: Yes: WNL Gastrointestinal: Yes: WNL, Normal Bowel Sounds, Soft, Abdomen, Obese, Tenderness (lower abd tederness). No: Distention ...Rectal Exam: Yes: Deferred Renal/: Yes: , Vaginal Bleeding (light brown). No: CVA Tenderness - Left, CVA Tenderness - Right Pelvis: Yes: Tenderness (lower abdomen) External Genitalia: Yes: Normal Internal Exam Deferred: Yes Vaginal Exam: Yes: Other (ps exam very painful). No: Bleeding (light.) Cervix: Yes: Cerv Motion Tenderness Uterus: Yes: Anteverted, Enlarged, Tender (unable to determine size due to severe tenderness ,) Adnexa: Tender: Bilateral, Not Palpable: Bilateral (due to tenderness exam was unsatisfactory ) Breast(s): Yes: WNL Musculoskeletal: Yes: WNL Extremities: Yes: WNL Edema: No Integumentary: Yes: Tattoos Neurological: Yes: WNL, Alert, Oriented ...Motor Strength: WNL Psychiatric: Yes: WNL, Alert, Oriented Labs: CBC, BMP 05/11/19 03:08 05/11/19 03:08 Laboratory Tests 10/06/13 04/30/19 04/30/19 15:54 15:15 15:15 Hgb 13.6 13.1 PTT (Actin FS) AST ALT Beta HCG, Quant 6712.2 05/04/19 05/04/19 05/07/19 13:25 17:09 11:43 Hgb 12.8 PTT (Actin FS) AST ALT Beta HCG, Quant 74288.6 60855.4 05/10/19 05/11/19 05/11/19 20:10 03:08 03:08 Hgb 11.4 PTT (Actin FS) AST 19 ALT 17 Beta HCG, Quant 91173.1 05/11/19 06:15 Hgb PTT (Actin FS) 34.1 AST ALT Beta HCG, Quant Laboratory Tests 05/11/19 03:08 Blood Type O POSITIVE Antibody Screen Negative Problem List - Problem (1) Ectopic Code(s): O00.90 - UNSPECIFIED ECTOPIC WITHOUT INTRAUTERINE (2) Abdominal pain Code(s): R10.9 - UNSPECIFIED ABDOMINAL PAIN Qualifiers: Abdominal location: lower abdomen, unspecified Qualified Code(s): R10.30 - Lower abdominal pain, unspecified (3) Fibroid uterus Code(s): D25.9 - LEIOMYOMA OF UTERUS, UNSPECIFIED Assessment/Plan 23 yrs , 3.5 weeks gestation , s/p Methotrexate inj on 05/04/19 for suspected ectopic , returns with severe abdominal pain not relieved by anagesics ( morphine) , BHCG still persistently high 12324.1 , pedunculated & Rt cornual fibroid Imp : possible Rt Cornual pregnacy , not ruptured with Fibroid uterus ? torsion , hemodynamically stable Plan : surgery : laproscopy possible laprotomy , possible excision cornual pregnacy & possible myomectomy for pedunculated fibroid 8.30 AM management handed over to Dr Mccray
[2019-05-11 07:26] LABS: INR 1.08 (0.83-1.09); PROTHROMBIN TIME (PATIENT) 12.8 SEC (9.7-13.0)
[2019-05-11] MEDS ORDERED: ACETAMINOPHEN 1000 MG/100 ML VIAL (NON FORMULARY) IVPB ONE (08:55)
[2019-05-11] MEDS ORDERED: DEXAMETHASONE SOD PHOSPHATE 4 MG/1 ML VIAL ONE ×2 (09:27→09:34)
[2019-05-11] MEDS ORDERED: ONDANSETRON 4 MG/2 ML VIAL ONE (09:27)
[2019-05-11] MEDS ORDERED: KETOROLAC TROMETHAMINE 30 MG/1 ML VIAL ONE (09:27)
[2019-05-11] MEDS ORDERED: EPHEDRINE SULFATE/0.9% NACL/PF 50 MG/10 ML SYRINGE NR ONE (09:28)
[2019-05-11] MEDS ORDERED: PROPOFOL 20 ML ONE ×4 (09:28→11:20)
[2019-05-11] MEDS ORDERED: SUCCINYLCHOLINE CHLORIDE 200 MG/10 ML SYRINGE ONE (09:29)
[2019-05-11] MEDS ORDERED: ROCURONIUM BROMIDE 50 MG/5 ML SYRINGE ONE ×2 (09:29→10:40)
[2019-05-11] MEDS ORDERED: MIDAZOLAM HCL 2 MG/2 ML SINGLE DOSE VIAL ONE ×2 (09:29→09:39)
[2019-05-11] MEDS ORDERED: LIDOCAINE HCL/PF 2% SDV 5ML VIAL ONE (09:30)
--- NOTE | 2019-05-11 09:31 | PN ---
Progress Note (short form) - Note Progress Note: Patient evaluated prior to going to OR. She reports severe RLQ pain not improving with medication. Patient is writhing in pain. She reports pain has significantly worsened. vitals: As recorded labs reviewed Abd: soft, n/d, no rebound, mild guarding, tenderness to palpation in RLQ A/P: 23 y/o S/P medical treatment for possible ectopic presenting with severe abdominal pain. Betas have appropriately decreased and imaging unable to appropriately evaluate pelvis. Clinical presentation warrants surgical intervention. Risks and complications of surgery discussed with patient. -Proceed with diagnostic laparoscopy, D&C and surgery as indicated.
[2019-05-11] MEDS ORDERED: NEOSTIGMINE METHYLSULFATE 0.5 MG/1 ML - 10 ML MDV ONE (10:53)
[2019-05-11] MEDS ORDERED: GLYCOPYRROLATE 0.2 MG/1 ML VIAL ONE ×2 (10:54)
[2019-05-11] MEDS ORDERED: BUPIVACAINE HCL/PF 0.5% (5 MG/ML) 30 ML VIAL IJ ONE (11:02)
[2019-05-11] MEDS ORDERED: PROMETHAZINE HCL 25 MG/1 ML VIAL IVPB PRN (12:10)
[2019-05-11] MEDS ORDERED: ONDANSETRON 4 MG/2 ML VIAL IVPUSH PRN (12:10)
[2019-05-11] MEDS ORDERED: HYDROmorphone HCl 2 MG/ML VIAL IVPUSH PRN (12:15)
[2019-05-11] MEDS ORDERED: LACTATED RINGERS SOLUTION 1,000 ML IV SCH (12:15)
--- NOTE | 2019-05-11 12:42 | OP ---
Operative Note - Note: Operative Date: 05/11/19 (Dic # [id number]) Pre-Operative Diagnosis: Suspected ectopic Operation: Diagnostic laparoscopy and right salpingectomy Findings: see dictation Post-Operative Diagnosis: Same as Pre-op Surgeon: Tayo Mccray Anesthesia: General Specimens Removed: right fallopian tube with ectopic Estimated Blood Loss (mls): 550 Drains, Volume Out (mls): 500 Fluid Volume Replaced (mls): 1,400 Operative Report Dictated: Yes
[2019-05-11] MEDS ORDERED: HYDROmorphone HCl 2 MG/ML VIAL ONE (12:46)
[2019-05-11 13:31] VITALS: TEMP 98.5
[2019-05-11 13:40] LABS: HEMATOCRIT 33.6 % (32.4-45.2); HEMOGLOBIN 11.3 GM/dL (10.7-15.3); LYMPH % 9.4 % (8-40); MCH 29.9 pg (25.7-33.7); MCHC 33.6 g/dl (32.0-36.0); MEAN PLT VOLUME 9.6 fl (7.5-11.1); MONO % 1.1 % (3.8-10.2); NEUT % 89.5 % (42.8-82.8); PLATELET COUNT 135 K/MM3 (134-434); RBC 3.77 M/mm3 (3.60-5.2); RDW 14.4 % (11.6-15.6); WHITE BLOOD COUNT 6.3 K/mm3 (4.0-10.0)
--- NOTE | 2019-05-11 13:59 | SURG ---
Surgery Door Core Assembler Note Door Core Assembler: Craig Galaviz PA-C Date of Service: 05/11/19 Diagnosis: Suspected ectopic Procedure: Diagnostic laparoscopy and right salpingectomy for ectopic I was present for the entirety of the operative procedure. For further detail, please refer to operative report. Visit type - Case Type Case Type: ED Admission - Emergency Emergency Visit: Yes ED Registration Date: 05/11/19 Care time: The patient presented to the Emergency Department on the above date and was hospitalized for further evaluation of their emergent condition. - New patient This patient is new to me today: Yes Date on this admission: 05/11/19 - Critical Care Critical Care patient: No
[2019-05-11 14:19] VITALS: BP 108/65; PULSE 98
--- NOTE | 2019-05-11 15:24 | OP ---
DATE OF OPERATION: 05/11/2019 ATTENDING: Sandra To MD PREOPERATIVE DIAGNOSIS: A 23-year-old female, status post medical treatment of ectopic , presenting with severe abdominal pain suspicious for ruptured ectopic. POSTOPERATIVE DIAGNOSIS: Ruptured right ectopic . PROCEDURE: Diagnostic laparoscopy, right salpingectomy. SPECIMENS: Right fallopian tube and ectopic . ANESTHESIA: General. IV FLUIDS: 1400 mL of crystalloid. ESTIMATED BLOOD LOSS: 550. URINE OUTPUT: 500 mL of clear urine. COMPLICATIONS: None. FINDINGS: Normal anterior abdominal anatomy. Approximately 500 mL of hemoperitoneum encountered on entry with the laparoscope. Left fallopian tube and ovary consistent with normal anatomy. Right fallopian tube distended with large 5 x 8 cm ectopic . It was ruptured and a large blood clot at the fimbriated end of the tube noted. Inspection of abdomen and pelvic cavity revealed no other abnormalities or evidence of trauma. The pelvis was copiously irrigated and suctioned out. Right mesosalpinx surgical stump was noted to be dry. The patient was taken to the operating room, where anesthesia was found to be adequate. She was then prepped and draped in the normal sterile fashion. Appropriate timeout took place. Attention was redirected to the vaginal area, where a Mckeon catheter was placed atraumatically. Retractors were utilized to visualize the cervix and grasp the anterior lip. Cervix was noted to be posterior, short, and stenotic. The cervix was progressively dilated to accommodate a HUMI manipulator to a depth of 8 cm. Balloon tip was inflated. All instruments were retrieved from the vagina. Attention then was redirected to the anterior abdominal wall, where an infraumbilical incision was made with the scalpel to accommodate a Ronen trocar. The subcutaneous tissues were bluntly dissected off, elevated with Kochers, and transected with the Herrera scissors. The incision was elevated and the fascial edges anchored with 0 Polysorb suture. The peritoneum was entered bluntly. The Ronen trocar was placed and insufflating media activated. Immediate inspection with the laparoscope revealed appropriate placement and no evidence of active bleeding or trauma at the point of entry. Hemoperitoneum was immediately noted, as mentioned above. The uterus was elevated with a HUMI manipulator and a large clot with evident ectopic on the right tube noted. Inspection of the rest of the pelvis revealed normal anatomy. Right lower quadrant followed by left lower quadrant 5-mm trocars were placed under constant visualization without difficulty. The pelvis was initially irrigated and suctioned out. The right fallopian tube was elevated at its fimbriated end away from any surrounding viscera. The mesosalpinx immediately adjacent to the tube was cauterized and transected with the LigaSure instrument, and the complete ruptured ectopic was removed along with the tube. The surgical stump was noted to be hemostatically stable. An Endobag was placed and the ectopic was placed in the bag and removed without difficulty. Reverse Trendelenburg took place and the pelvis was copiously irrigated and suctioned out. Secondary inspection revealed no active bleeding. The uterus was consistent with normal anatomy. The right lower quadrant port and the left lower quadrant port were removed under constant visualization, and no active bleeding was noted. All insufflating media was evacuated from the abdomen. The Ronen infraumbilical port was removed and the fascial incision was approximated with the previously anchored 0 Polysorb sutures. Additional 2 interrupted sutures were required to obliterate the fascial defect, as the fascia was elevated via the anchoring stitches. The skin incision was approximated with 3-0 Monocryl suture. Excellent approximation and hemostasis noted. Attention then was redirected to the vaginal area, where the HUMI manipulator and the Mckeon catheter were removed atraumatically. No active bleeding was noted. Patient tolerated the procedure well, was going to the recovery room in stable condition. Instrument counts reported as correct x2 by the staff. Specimen to Pathology. SANDRA TO MD [id number]
== END 2019-05-11 15:35 | disposition home or self-care (01) | DRG 545 ==
LOC: JER 01:37 → JERBED 05:58 → J3W 08:05
PROVIDERS: ADMIT Obstetrics & Gynecology; ATTEND Obstetrics & Gynecology
PROC: 10T24ZZ Resection of Products of Conception, Ectopic, Percutaneous Endoscopic Approach (ICD-10-PCS; 2019-05-11)
PROC: 0UT54ZZ Resection of Right Fallopian Tube, Percutaneous Endoscopic Approach (ICD-10-PCS; principal; 2019-05-11 11:00)
DX: O00.111 Right tubal pregnancy with intrauterine pregnancy (principal); K66.1 Hemoperitoneum; D25.9 Leiomyoma of uterus, unspecified; R10.30 Lower abdominal pain, unspecified
CPT/HCPCS: 36415; 80053; 85025; 85610; 85730; 86850; 86900; 86901; 86922; 94760; 99282-25; J0131; J7030

== ENCOUNTER 2020-09-16 20:55 | Inpatient (IN) | payer OTHER ==
[2020-09-16] MEDS ORDERED: AMPICILLIN SODIUM 2 GM VIAL IVPB ONE (21:00)
[2020-09-16] MEDS ORDERED: PROMETHAZINE HCL 25 MG/1 ML VIAL IVPB ONE (21:30)
[2020-09-16] MEDS ORDERED: BUTORPHANOL TARTRATE 1 MG/ML VIAL IVPB ONE (21:30)
[2020-09-16] MEDS: ELECTROLYTE-148 SOLN 1,000 ML IV SCH (21:30)
[2020-09-16] MEDS ORDERED: BUTORPHANOL TARTRATE 2 MG/ML VIAL IVPUSH ONE (21:48)
[2020-09-16] MEDS ORDERED: PROMETHAZINE HCL 25 MG/1 ML VIAL IVPUSH ONE (21:48)
[2020-09-16] MEDS: DEXTROSE 5%-LACTATED RINGERS 1,000 ML IV SCH (22:00)
[2020-09-16] MEDS ORDERED: BUTORPHANOL TARTRATE 2 MG/ML VIAL ONE (22:10)
[2020-09-16] MEDS ORDERED: PROMETHAZINE HCL 25 MG/1 ML VIAL ONE (22:10)
[2020-09-16 22:47] LABS: BASO % 0.4 % (0-2.0); EOS % 0.5 % (0-4.5); HEMATOCRIT 34.2 % (32.4-45.2); HEMOGLOBIN 11.6 GM/dL (10.7-15.3); LYMPH % 18.8 % (8-40); MCH 29.7 pg (25.7-33.7); MCHC 33.8 g/dl (32.0-36.0); MEAN CELL VOLUME 87.7 fl (80-96); MEAN PLT VOLUME 10.8 fl (7.5-11.1); MONO % 6.1 % (3.8-10.2); NEUT % 74.2 % (42.8-82.8); PLATELET COUNT 142 K/MM3 (134-434); RDW 16.2 % (11.6-15.6); WHITE BLOOD COUNT 9.7 K/mm3 (4.0-10.0)
[2020-09-16 22:52] LABS: PROTHROMBIN TIME (PATIENT) 12.1 SEC (9.7-13.0)
[2020-09-16 22:54] LABS: ACTIVATED PTT 28.5 SECONDS (25.2-36.5)
[2020-09-16 23:08] LABS: CALCIUM 8.5 mg/dL (8.5-10.1)
[2020-09-16 23:09] LABS: BLOOD UREA NITROGEN 9.5 mg/dL (7-18)
[2020-09-16 23:12] LABS: CREATININE 0.7 mg/dL (0.55-1.3)
[2020-09-16 23:18] VITALS: BMI 37.6
[2020-09-16] MEDS ORDERED: AMPICILLIN SODIUM 2 GM VIAL ONE (23:48)
[2020-09-17] MEDS ORDERED: BUPIVACAINE HCL/PF 0.25% (2.5MG/ML) 10 ML VIAL ONE (00:44)
[2020-09-17] MEDS ORDERED: NALOXONE HCL 0.4 MG/ML VIAL IVPUSH PRN (00:50)
[2020-09-17] MEDS ORDERED: FENTANYL/BUPIVACAINE/NS/PF - PCEA - 50 ML DISP.SYRIN EP ONE ×3 (00:58→10:08)
[2020-09-17] MEDS ORDERED: FENTANYL/BUPIVACAINE/NS/PF - PCEA - 50 ML DISP.SYRIN EP SCH (01:00)
[2020-09-17] MEDS ORDERED: AMPICILLIN SODIUM 1 GM VIAL ONE ×2 (03:48→07:52)
[2020-09-17] MEDS: AMPICILLIN SODIUM 1 GM VIAL IVPB SCH ×4 (03:50→13:00)
[2020-09-17] MEDS ORDERED: PCA PUMP NR ONE ×2 (05:27→10:07)
[2020-09-17] MEDS: ELECTROLYTE-148 SOLN 1,000 ML IV SCH ×2 (06:00→21:44)
[2020-09-17] MEDS ORDERED: morphine SULFATE/PF 0.5 MG/ML (2cc Syringe - QUVA) ONE (10:48)
[2020-09-17] MEDS ORDERED: PHENYLEPHRINE HCL 10 MG/1 ML SINGLE DOSE VIAL ONE (10:51)
[2020-09-17] MEDS ORDERED: OXYTOCIN 10 UNITS/ML VIAL ONE (10:51)
[2020-09-17] MEDS ORDERED: ONDANSETRON 4 MG/2 ML VIAL ONE (10:51)
[2020-09-17] MEDS ORDERED: SODIUM CHLORIDE 0.9% P/F 10 ML VIAL IJ ONE (11:18)
[2020-09-17] MEDS ORDERED: morphine SULFATE/PF 0.5 MG/ML (2cc Syringe - QUVA) EP ONE (11:25)
[2020-09-17] MEDS ORDERED: KETOROLAC TROMETHAMINE 30 MG/1 ML VIAL ONE (11:36)
[2020-09-17 12:33] LABS: CORD BASE EXCESS -7.9 mmol/L (0-2); CORD HCO3 18.3 mmHg (20-29); CORD HCO3 20.6 mmHg (20-29); CORD PCO2 40.4 mmHg (30-78); CORD PCO2 56.8 mmHg (30-78); CORD pH 7.177 (7.14-7.44); CORD pH 7.275 (7.14-7.44)
[2020-09-17] MEDS ORDERED: oxyCODONE HCL 5 MG TABLET PO PRN (12:53)
[2020-09-17] MEDS ORDERED: BENZOCAINE 28 GM HEMORRHOIDAL OINTMENT TP PRN (12:53)
[2020-09-17] MEDS ORDERED: METHYLERGONOVINE MALEATE 0.2 MG/1 ML AMP IM PRN (12:53)
[2020-09-17] MEDS ORDERED: WITCH HAZEL 50% (TUCKS) 40 PAD/JAR PAD TP PRN (12:53)
[2020-09-17] MEDS ORDERED: IBUPROFEN 600 MG TABLET (FP) PO PRN (12:54)
[2020-09-17] MEDS ORDERED: ONDANSETRON 4 MG/2 ML VIAL IVPUSH PRN (12:54)
[2020-09-17] MEDS ORDERED: ACETAMINOPHEN 325 MG TABLET (FP) PO PRN (12:54)
[2020-09-17] MEDS ORDERED: ACETAMINOPHEN 1000 MG/100 ML VIAL (NON FORMULARY) IVPB ONE (12:57)
[2020-09-17] MEDS ORDERED: OXYTOCIN 20 UNITS in 0.9% NS 20 UNIT/1,000 ML INFUS.BAG IV SCH (13:00)
[2020-09-17] MEDS ORDERED: ACETAMINOPHEN INJECTION 100 ML IVPB ONE (14:36)
[2020-09-17] MEDS: IBUPROFEN 800 MG/8 ML IJ IVPB PRN (17:02)
[2020-09-17] MEDS: ceFAZolin 2 GRAM PREMIX BAG IVPB SCH (19:46)
[2020-09-17] MEDS: ACETAMINOPHEN 325 MG TABLET (FP) PO PRN (19:57)
[2020-09-17] MEDS: oxyCODONE HCL 10 MG SUSTAINED ACTING TABLET PO SCH (22:18)
[2020-09-17] MEDS: DEXTROSE 5%-LACTATED RINGERS 1,000 ML IV SCH ×2 (23:18→23:33)
[2020-09-18] MEDS: IBUPROFEN 800 MG/8 ML IJ IVPB PRN (00:59)
[2020-09-18] MEDS: ACETAMINOPHEN 325 MG TABLET (FP) PO PRN ×3 (03:38→20:43)
[2020-09-18] MEDS: SIMETHICONE 80 MG TAB.CHEW (FP) PO PRN ×2 (03:38→20:44)
[2020-09-18] MEDS: ceFAZolin 2 GRAM PREMIX BAG IVPB SCH ×2 (03:40→11:21)
[2020-09-18] MEDS: oxyCODONE HCL 10 MG SUSTAINED ACTING TABLET PO SCH ×2 (09:45→21:33)
[2020-09-18] MEDS: ENOXAPARIN NA (PORCINE) 40 MG/0.4 ML DISP.SYRIN SQ SCH (09:58)
[2020-09-18] MEDS: PRENATAL VITAMINS W/ FOLIC ACID TABLET (FP) PO SCH (09:59)
[2020-09-18 10:19] LABS: BASO % 0.1 % (0-2.0); EOS % 1.4 % (0-4.5); HEMATOCRIT 34.4 % (32.4-45.2); HEMOGLOBIN 11.5 GM/dL (10.7-15.3); LYMPH % 11.2 % (8-40); MCH 29.3 pg (25.7-33.7); MCHC 33.5 g/dl (32.0-36.0); MEAN CELL VOLUME 87.5 fl (80-96); MEAN PLT VOLUME 10.3 fl (7.5-11.1); MONO % 4.5 % (3.8-10.2); NEUT % 82.8 % (42.8-82.8); PLATELET COUNT 152 K/MM3 (134-434); RBC 3.93 M/mm3 (3.60-5.2); RDW 15.9 % (11.6-15.6); WHITE BLOOD COUNT 9.5 K/mm3 (4.0-10.0)
[2020-09-18] MEDS: IBUPROFEN 600 MG TABLET (FP) PO PRN ×2 (12:45→20:43)
[2020-09-18] MEDS ORDERED: BISACODYL 10 MG SUPP.RECT RC PRN (12:53)
[2020-09-18] MEDS: SENNOSIDES/DOCUSATE COMBO (SENNA PLUS) TABLET (UD) PO PRN (20:44)
[2020-09-19] MEDS: IBUPROFEN 600 MG TABLET (FP) PO PRN ×3 (08:25→22:00)
[2020-09-19] MEDS: ACETAMINOPHEN 325 MG TABLET (FP) PO PRN ×3 (08:26→22:00)
[2020-09-19] MEDS: ENOXAPARIN NA (PORCINE) 40 MG/0.4 ML DISP.SYRIN SQ SCH (10:00)
[2020-09-19] MEDS: PRENATAL VITAMINS W/ FOLIC ACID TABLET (FP) PO SCH (10:00)
[2020-09-19] MEDS: oxyCODONE HCL 10 MG SUSTAINED ACTING TABLET PO SCH ×2 (10:00→21:12)
[2020-09-19] MEDS: SENNOSIDES/DOCUSATE COMBO (SENNA PLUS) TABLET (UD) PO PRN (21:11)
[2020-09-19] MEDS: SIMETHICONE 80 MG TAB.CHEW (FP) PO PRN (21:12)
[2020-09-20] MEDS: ACETAMINOPHEN 325 MG TABLET (FP) PO PRN (08:24)
[2020-09-20] MEDS: IBUPROFEN 600 MG TABLET (FP) PO PRN (08:25)
[2020-09-20] MEDS: SIMETHICONE 80 MG TAB.CHEW (FP) PO PRN (08:26)
[2020-09-20 08:51] LABS: BASO % 0.1 % (0-2.0); EOS % 2.1 % (0-4.5); HEMOGLOBIN 11.5 GM/dL (10.7-15.3); LYMPH % 13.7 % (8-40); MCH 29.6 pg (25.7-33.7); MCHC 33.8 g/dl (32.0-36.0); MEAN CELL VOLUME 87.7 fl (80-96); MEAN PLT VOLUME 10.1 fl (7.5-11.1); MONO % 4.5 % (3.8-10.2); NEUT % 79.6 % (42.8-82.8); PLATELET COUNT 178 K/MM3 (134-434); RBC 3.88 M/mm3 (3.60-5.2); RDW 15.8 % (11.6-15.6); WHITE BLOOD COUNT 6.8 K/mm3 (4.0-10.0)
[2020-09-20] MEDS: oxyCODONE HCL 10 MG SUSTAINED ACTING TABLET PO SCH (09:39)
[2020-09-20] MEDS: ENOXAPARIN NA (PORCINE) 40 MG/0.4 ML DISP.SYRIN SQ SCH (09:39)
[2020-09-20] MEDS: PRENATAL VITAMINS W/ FOLIC ACID TABLET (FP) PO SCH (09:39)
[2020-09-20 10:20] VITALS: BP 130/75; PULSE 73; TEMP 98.7
== END 2020-09-20 13:15 | disposition home or self-care (01) | DRG 540 ==
LOC: JDEL 20:55 → JLDR 20:58 → J3W 09-17 14:45
PROVIDERS: ADMIT Obstetrics & Gynecology; ATTEND Obstetrics & Gynecology
PROC: 10D00Z1 Extraction of Products of Conception, Low, Open Approach (ICD-10-PCS; principal; 2020-09-17)
PROC: 10907ZC Drainage of Amniotic Fluid, Therapeutic from Products of Conception, Via Natural or Artificial Opening (ICD-10-PCS; 2020-09-17)
PROC: 10H003Z Insertion of Monitoring Electrode into Products of Conception, Open Approach (ICD-10-PCS; 2020-09-17)
DX: O76 Abnormality in fetal heart rate and rhythm complicating labor and delivery (principal); O48.0 Post-term pregnancy; O62.1 Secondary uterine inertia; O99.214 Obesity complicating childbirth; E66.9 Obesity, unspecified; O34.13 Maternal care for benign tumor of corpus uteri, third trimester; D25.9 Leiomyoma of uterus, unspecified; O77.0 Labor and delivery complicated by meconium in amniotic fluid; Z86.2 Personal history of diseases of the blood and blood-forming organs and certain disorders involving the immune mechanism; Z3A.40 40 weeks gestation of pregnancy; Z37.0 Single live birth; Z90.79 Acquired absence of other genital organ(s)
CPT/HCPCS: 36415; 36600; 80048; 82803; 85025; 85610; 85730; 86780; 86850; 86900; 86901; 88307-TC; C9803; J0131; U0003